=== PATIENT | male | born 1940 | race Caucasian/White ===

== ENCOUNTER → 2016-11-22 | Outpatient (CLI) | payer MEDICARE, OTHER ==
[~2016-11-22] MED LIST: ASPI81 PO; LEVA500T33 PO; LISI40TA PO; METR-1 PO; PIOG15 PO; SIMV20 PO; TAB-TAB PO; TRIA3AER
[2016-11-22 09:31] LABS: HEMATOCRIT 42.8 % (39.0-51.0); MEAN CELL VOLUME 90.6 FL (80.0-100.0); MEAN CORPUSCULAR HEMOGLOBIN 31.3 PG (27.0-34.0); MEAN CORPUSCULAR HGB CONC 34.6 % (32.0-36.0); PLATELET COUNT 117 TH/MM3 (150-450); RED BLOOD COUNT 4.72 MIL/MM3 (4.50-5.90); RED CELL DISTRIBUTION WIDTH 13.5 % (11.6-17.2); REVIEW FLAG FINAL; WHITE BLOOD COUNT 4.7 TH/MM3 (4.0-11.0)
[2016-11-22 10:19] LABS: ALKALINE PHOSPHATASE 77 U/L (45-117); ALT (GPT) 35 U/L (12-78); ANION GAP 5 MEQ/L (5-15); AST (GOT) 22 U/L (15-37); BICARBONATE 30.2 MEQ/L (21.0-32.0); BLOOD UREA NITROGEN 24 MG/DL (7-18); CHLORIDE 103 MEQ/L (98-107); GLOMERULAR FILTRATION RATE 55 ML/MIN (>89); GLUCOSE,FASTING 112 MG/DL (74-99); HDL CHOLESTEROL 83.5 MG/DL (40.0-60.0); LDL CHOLESTEROL 35 MG/DL (0-99); LDL CHOLESTEROL DIRECT 43 MG/DL (0-99); POTASSIUM 4.7 MEQ/L (3.5-5.1); SODIUM (NA) 138 MEQ/L (136-145); TOTAL BILIRUBIN ADULT 0.7 MG/DL (0.2-1.0)
[2016-11-22 16:38] LABS: HEMOGLOBIN A1a 1.1 %; HEMOGLOBIN A1b 0.7 %; HEMOGLOBIN Ao 85.1 %; HEMOGLOBIN LA1C 1.9 %; HEMOGLOBIN P3 3.8 %
== END ==
LOC: PLAB 07:46
PROVIDERS: ATTEND Family Medicine
DX: E11.9 Type 2 diabetes mellitus without complications (principal); E78.2 Mixed hyperlipidemia; I10 Essential (primary) hypertension
CPT/HCPCS: 36415; 80053; 80061; 83036; 83721; 85027

== ENCOUNTER → 2017-02-21 | Outpatient (CLI) | payer MEDICARE, OTHER ==
[2017-02-21 09:17] LABS: HEMATOCRIT 42.7 % (39.0-51.0); MEAN CELL VOLUME 89.7 FL (80.0-100.0); MEAN CORPUSCULAR HEMOGLOBIN 31.2 PG (27.0-34.0); MEAN CORPUSCULAR HGB CONC 34.8 % (32.0-36.0); PLATELET COUNT 129 TH/MM3 (150-450); RED BLOOD COUNT 4.75 MIL/MM3 (4.50-5.90); RED CELL DISTRIBUTION WIDTH 13.7 % (11.6-17.2); REVIEW FLAG FINAL; WHITE BLOOD COUNT 4.7 TH/MM3 (4.0-11.0)
[2017-02-21 09:22] LABS: BLOOD, URINE NEG (NEG); GLUCOSE,URINE NEG (NEG); KETONE, URINE NEG (NEG); MUCUS URINE FEW /lpf (OCC); NITRITE,URINE NEG (NEG); PH, URINE 5.5 (5.0-8.5); URINE COLOR YELLOW (YELLW/STRAW)
[2017-02-21 09:55] LABS: ALKALINE PHOSPHATASE 79 U/L (45-117); ALT (GPT) 33 U/L (12-78); ANION GAP 5 MEQ/L (5-15); AST (GOT) 28 U/L (15-37); BICARBONATE 31.3 MEQ/L (21.0-32.0); BLOOD UREA NITROGEN 21 MG/DL (7-18); CHLORIDE 102 MEQ/L (98-107); GLOMERULAR FILTRATION RATE 60 ML/MIN (>89); GLUCOSE,FASTING 103 MG/DL (74-99); HDL CHOLESTEROL 73.6 MG/DL (40.0-60.0); LDL CHOLESTEROL 37 MG/DL (0-99); LDL CHOLESTEROL DIRECT 38 MG/DL (0-99); SODIUM (NA) 138 MEQ/L (136-145); TOTAL BILIRUBIN ADULT 0.8 MG/DL (0.2-1.0)
[2017-02-21 10:21] LABS: MICRO ALBUMIN RANDOM URINE RAW 13.2 MG/L (0.0-30.0)
[2017-02-21 11:06] LABS: HEMOGLOBIN A1b 0.8 %; HEMOGLOBIN Ao 85.3 %; HEMOGLOBIN F 0.9 %; HEMOGLOBIN LA1C 1.9 %; HEMOGLOBIN P3 3.8 %
== END ==
LOC: PLAB 07:45
PROVIDERS: ATTEND Family Medicine
DX: E11.9 Type 2 diabetes mellitus without complications (principal); E78.2 Mixed hyperlipidemia; I10 Essential (primary) hypertension; G20 Parkinson's disease
CPT/HCPCS: 36415; 80053; 80061; 81001; 82043; 83036; 83721; 85027

== ENCOUNTER → 2017-05-23 | Outpatient (CLI) | payer MEDICARE, OTHER ==
[2017-05-23 10:55] LABS: HEMATOCRIT 43.3 % (39.0-51.0); MEAN CELL VOLUME 90.2 FL (80.0-100.0); MEAN CORPUSCULAR HEMOGLOBIN 31.7 PG (27.0-34.0); MEAN CORPUSCULAR HGB CONC 35.2 % (32.0-36.0); PLATELET COUNT 116 TH/MM3 (150-450); RED BLOOD COUNT 4.79 MIL/MM3 (4.50-5.90); RED CELL DISTRIBUTION WIDTH 13.3 % (11.6-17.2); REVIEW FLAG FINAL; WHITE BLOOD COUNT 5.4 TH/MM3 (4.0-11.0)
[2017-05-23 11:06] LABS: ALT (GPT) 31 U/L (12-78); ANION GAP 4 MEQ/L (5-15); AST (GOT) 21 U/L (15-37); BICARBONATE 29.9 MEQ/L (21.0-32.0); BLOOD UREA NITROGEN 23 MG/DL (7-18); CHLORIDE 104 MEQ/L (98-107); GLOMERULAR FILTRATION RATE 57 ML/MIN (>89); GLUCOSE,FASTING 109 MG/DL (74-99); POTASSIUM 4.2 MEQ/L (3.5-5.1); SODIUM (NA) 138 MEQ/L (136-145)
[2017-05-23 11:16] LABS: ALKALINE PHOSPHATASE 80 U/L (45-117); HDL CHOLESTEROL 74.3 MG/DL (40.0-60.0); LDL CHOLESTEROL 33 MG/DL (0-99); LDL CHOLESTEROL DIRECT 42 MG/DL (0-99); TOTAL BILIRUBIN ADULT 0.7 MG/DL (0.2-1.0)
[2017-05-23 17:08] LABS: HEMOGLOBIN A1a 1.1 %; HEMOGLOBIN A1b 0.8 %; HEMOGLOBIN Ao 84.7 %; HEMOGLOBIN LA1C 1.9 %; HEMOGLOBIN P3 3.8 %
== END ==
LOC: PLAB 07:40
PROVIDERS: ATTEND Family Medicine
DX: E11.9 Type 2 diabetes mellitus without complications (principal); R53.83 Other fatigue; E78.2 Mixed hyperlipidemia; I10 Essential (primary) hypertension
CPT/HCPCS: 36415; 80053; 80061; 83036; 83721; 84443; 85027

== ENCOUNTER → 2017-08-22 | Outpatient (CLI) | payer MEDICARE, OTHER ==
[2017-08-22 09:35] LABS: HEMATOCRIT 42.4 % (39.0-51.0); MEAN CELL VOLUME 91.9 FL (80.0-100.0); MEAN CORPUSCULAR HEMOGLOBIN 31.8 PG (27.0-34.0); MEAN CORPUSCULAR HGB CONC 34.6 % (32.0-36.0); PLATELET COUNT 127 TH/MM3 (150-450); RED BLOOD COUNT 4.62 MIL/MM3 (4.50-5.90); RED CELL DISTRIBUTION WIDTH 13.4 % (11.6-17.2); REVIEW FLAG FINAL; WHITE BLOOD COUNT 4.8 TH/MM3 (4.0-11.0)
[2017-08-22 10:08] LABS: ANION GAP 6 MEQ/L (5-15); AST (GOT) 31 U/L (15-37); BICARBONATE 27.7 MEQ/L (21.0-32.0); BLOOD UREA NITROGEN 30 MG/DL (7-18); CHLORIDE 102 MEQ/L (98-107); GLOMERULAR FILTRATION RATE 57 ML/MIN (>89); GLUCOSE,FASTING 117 MG/DL (74-99); SODIUM (NA) 136 MEQ/L (136-145)
[2017-08-22 10:13] LABS: ALKALINE PHOSPHATASE 80 U/L (45-117); ALT (GPT) 38 U/L (12-78); HDL CHOLESTEROL 76.1 MG/DL (40.0-60.0); LDL CHOLESTEROL 24 MG/DL (0-99); LDL CHOLESTEROL DIRECT 42 MG/DL (0-99); TOTAL BILIRUBIN ADULT 0.7 MG/DL (0.2-1.0)
[2017-08-22 15:48] LABS: HEMOGLOBIN A1a 1.1 %; HEMOGLOBIN A1b 0.7 %; HEMOGLOBIN Ao 84.7 %; HEMOGLOBIN P3 3.8 %
== END ==
LOC: PLAB 07:01
PROVIDERS: ATTEND Family Medicine
DX: E11.9 Type 2 diabetes mellitus without complications (principal); E78.2 Mixed hyperlipidemia; I10 Essential (primary) hypertension
CPT/HCPCS: 36415; 80053; 80061; 83036; 83721; 85027

== ENCOUNTER → 2017-11-28 | Outpatient (CLI) | payer MEDICARE, OTHER ==
[2017-11-28 09:23] LABS: HEMATOCRIT 44.3 % (39.0-51.0); HEMOGLOBIN 15.3 GM/DL (13.0-17.0); MEAN CELL VOLUME 91.6 FL (80.0-100.0); MEAN CORPUSCULAR HEMOGLOBIN 31.6 PG (27.0-34.0); MEAN CORPUSCULAR HGB CONC 34.5 % (32.0-36.0); MEAN PLATELET VOLUME 9.3 FL (7.0-11.0); PLATELET COUNT 131 TH/MM3 (150-450); RED BLOOD COUNT 4.84 MIL/MM3 (4.50-5.90); RED CELL DISTRIBUTION WIDTH 13.3 % (11.6-17.2); WHITE BLOOD COUNT 4.9 TH/MM3 (4.0-11.0)
[2017-11-28 09:51] LABS: ALBUMIN 4.4 GM/DL (3.4-5.0); ALT (GPT) 22 U/L (12-78); AST (GOT) 26 U/L (15-37); BICARBONATE 29.3 MEQ/L (21.0-32.0); BLOOD UREA NITROGEN 24 MG/DL (7-18); CHLORIDE 101 MEQ/L (98-107); CHOLESTEROL 127 MG/DL (120-200); CREATININE 1.12 MG/DL (0.60-1.30); GLOMERULAR FILTRATION RATE 63 ML/MIN (>89); GLUCOSE,FASTING 112 MG/DL (74-99); SODIUM (NA) 137 MEQ/L (136-145); TRIGLYCERIDES 63 MG/DL (42-150)
[2017-11-28 09:52] LABS: CALCIUM 9.4 MG/DL (8.5-10.1)
[2017-11-28 09:53] LABS: ALKALINE PHOSPHATASE 79 U/L (45-117); CHOLESTEROL/ HDL RATIO 1.55 RATIO; HDL CHOLESTEROL 81.5 MG/DL (40.0-60.0); LDL CHOLESTEROL 33 MG/DL (0-99); LDL CHOLESTEROL DIRECT 44 MG/DL (0-99); TOTAL PROTEIN 7.3 GM/DL (6.4-8.2)
[2017-11-28 17:06] LABS: HEMOGLOBIN A1C 6.2 % (4.3-6.0)
== END ==
LOC: PLAB 07:47
PROVIDERS: ATTEND Family Medicine
DX: E11.9 Type 2 diabetes mellitus without complications (principal); E78.2 Mixed hyperlipidemia; I10 Essential (primary) hypertension
CPT/HCPCS: 36415; 80053; 80061; 83036; 83721; 85027

== ENCOUNTER → 2018-03-15 | Outpatient (CLI) | payer MEDICARE, OTHER ==
[2018-03-15 10:32] LABS: HEMATOCRIT 44.3 % (39.0-51.0); HEMOGLOBIN 15.2 GM/DL (13.0-17.0); MEAN CELL VOLUME 92.2 FL (80.0-100.0); MEAN CORPUSCULAR HEMOGLOBIN 31.7 PG (27.0-34.0); MEAN CORPUSCULAR HGB CONC 34.3 % (32.0-36.0); PLATELET COUNT 148 TH/MM3 (150-450); RED CELL DISTRIBUTION WIDTH 13.5 % (11.6-17.2); WHITE BLOOD COUNT 7.2 TH/MM3 (4.0-11.0)
[2018-03-15 10:37] LABS: ALBUMIN 4.4 GM/DL (3.4-5.0); ALT (GPT) 27 U/L (12-78); AST (GOT) 23 U/L (15-37); BICARBONATE 29.6 MEQ/L (21.0-32.0); BLOOD UREA NITROGEN 27 MG/DL (7-18); CALCIUM 9.1 MG/DL (8.5-10.1); CHLORIDE 101 MEQ/L (98-107); CHOLESTEROL 132 MG/DL (120-200); CREATININE 1.11 MG/DL (0.60-1.30); GLOMERULAR FILTRATION RATE 64 ML/MIN (>89); GLUCOSE,FASTING 136 MG/DL (74-99); SODIUM (NA) 137 MEQ/L (136-145); TRIGLYCERIDES 73 MG/DL (42-150)
[2018-03-15 10:40] LABS: ALKALINE PHOSPHATASE 82 U/L (45-117); CHOLESTEROL/ HDL RATIO 1.69 RATIO; HDL CHOLESTEROL 78.1 MG/DL (40.0-60.0); LDL CHOLESTEROL 39 MG/DL (0-99); LDL CHOLESTEROL DIRECT 39 MG/DL (0-99); TOTAL BILIRUBIN ADULT 0.8 MG/DL (0.2-1.0); TOTAL PROTEIN 7.3 GM/DL (6.4-8.2)
== END ==
LOC: PLAB 07:28
PROVIDERS: ATTEND Family Medicine
DX: E11.9 Type 2 diabetes mellitus without complications (principal); E78.4 Other hyperlipidemia; I10 Essential (primary) hypertension
CPT/HCPCS: 36415; 80053; 80061; 83036; 83721; 85027

== ENCOUNTER 2018-05-07 16:25 | Observation (INO) ==
[2018-05-07 17:30] LABS: Bacteria,Urine Rare /hpf; Bilirubin,Urine Negative (Negative); Clarity,Urine Clear (Clear); Color,Urine Yellow (Yellw/Straw); Glucose,Urine (UA) Negative (Negative); Leukocyte Esterase,Urine Negative (Negative); Nitrite,Urine Negative (Negative); Specific Gravity,Urine 1.013 (1.002-1.035)
--- NOTE | 2018-05-07 17:30 | XR ---
EXAM DATE: 05/07/2018 5:18 PM EDT AGE/SEX: 77 years / Male INDICATIONS: Chest pain. CLINICAL DATA: This is the patient's initial encounter. Patient reports that signs and symptoms have been present for 1 day and indicates a pain score of 6/10. MEDICAL/SURGICAL HISTORY: None. None. COMPARISON: No prior exams available for comparison. FINDINGS: The lungs are clear without infiltrate, nodule, or mass. There is no appreciable pleural effusion fo r technique. Heart and mediastinum are unremarkable. CONCLUSION: No acute cardiopulmonary disease. Electronically signed by: Cheryl Ott MD 05/07/2018 5:29 PM EDT
[2018-05-07 17:33] LABS: INR 1.1 Ratio; Prothrombin Time 11.1 sec (9.8-11.6)
[2018-05-07 17:35] LABS: Baso % (Auto) 0.6 % (0.0-2.0); Eos # (Auto) 0.1 th/mm3 (0.0-0.4); Eos % (Auto) 0.9 % (0.0-4.0); Hematocrit 40.2 % (39.0-51.0); Hemoglobin 13.9 gm/dL (13.0-17.0); Lymph # (Auto) 1.1 th/mm3 (1.0-4.8); Lymph % (Auto) 17.9 % (9.0-44.0); Mean Corpuscular HGB Conc 34.6 % (32.0-36.0); Mean Corpuscular Hemoglobin 31.8 pg (27.0-34.0); Mean Corpuscular Volume 91.9 fL (80.0-100.0); Mean Platelet Volume 9.9 fL (7.0-11.0); Mono # (Auto) 0.4 th/mm3 (0.0-0.9); Neut # (Auto) 4.5 th/mm3 (1.8-7.7); Neut % (Auto) 74.6 % (16.0-70.0); Platelet Count 103 th/mm3 (150-450); Red Blood Count 4.38 mil/mm3 (4.50-5.90); Red Cell Distribution Width 13.2 % (11.6-17.2); White Blood Count 6.1 th/mm3 (4.0-11.0)
[2018-05-07 17:41] LABS: Anion Gap 5 meq/L (5-15); Blood Urea Nitrogen 26 mg/dL (7-18); Calcium 8.9 mg/dL (8.5-10.1); Carbon Dioxide 28.3 meq/L (21.0-32.0); Chloride 104 meq/L (98-107); Creatine Kinase 175 U/L (39-308); Glomerular Filtration Rate 60 mL/min (>89); Glucose,Random 174 mg/dL (74-106); Potassium 4.7 meq/L (3.5-5.1); Sodium 137 meq/L (136-145)
[2018-05-07 17:55] LABS: Creatine Kinase MB 2.9 ng/mL (0.5-3.6)
[2018-05-07 18:05] LABS: Platelet Morphology Normal (Normal)
[2018-05-07] MEDS ORDERED: Aspirin 325 MG Tablet PO ONE (18:41)
--- NOTE | 2018-05-07 19:29 | ED ---
HPI General Chief Complaint: Chest Pain Stated Complaint: chest pain Time Seen by Provider: 05/07/18 18:11 Source: patient Mode of arrival: ambulatory Limitations: no limitations History of Present Illness HPI narrative: 77-year-old male with a history of diabetes, high blood pressure , high cholesterol, Parkinson's the presents to the ED for evaluation of left- sided chest pain. Patient has had this for the past 2 days. Per patient he comes and goes. Per patient he does not last more than a minute and then he goes away. Per patient is very significant when he comes. Per patient is 8 out of 10 and catches his breath. No history of this in the past. Has not had a stress test in years. No history of heart disease. He states compliance with his medications and takes a baby aspirin every day. He follows with no shake feeder. No urinary or bowel movement issues. No injury or trauma. Nothing seems to make it better or worse. Per patient he did notice that 1 of them did happen when he was in the exercise room but otherwise most of them appear to calm with no real explanation. Patient got concern is what prompted evaluation. Currently he has no symptoms other than some anxiety which she has chronically. Complete Quality Measures for STEMI Alert Patients Related Data Allergies Allergy/AdvReac Type Severity Reaction Status Date / Time bacitracin [From Polysporin] Allergy Rash Verified 05/07/18 16:36 neomycin Allergy Rash Verified 05/07/18 16:36 [From Triple Antibiotic] polymyxin B [From Polysporin] Allergy Rash Verified 05/07/18 16:36 Review of Systems ROS Unobtainable All other systems reviewed negative except as stated in HPI FOR[facility]LY [facility], [facility] Medical History Medical History Diabetes mellitus (Acute) Hypertension (Acute) Melanoma of face (Acute) Parkinson disease (Acute) Surgical History Surgical History Hx of cholecystectomy (Acute) Social History Social History Smoking Status: Former smoker How Often Do You Have a Drink Containing Alcohol: 4 or more times a week Recent Travel in [facility] within the Last 8 Weeks: No Recent Out of Country Travel within the Last 8 Weeks: No Immunization History Tetanus Immunization: Unsure Exam Narrative Exam Narrative: GENERAL: Well-appearing SKIN: Focused skin assessment warm/dry. HEAD: Atraumatic. Normocephalic. EYES: Pupils equal and round. No scleral icterus. No injection or drainage. ENT: No nasal bleeding or discharge. Mucous membranes pink and moist. Tongue is midline. No uvula deviation. NECK: Trachea midline. No JVD. CARDIOVASCULAR: Regular rate and rhythm. No murmur appreciated. RESPIRATORY: No accessory muscle use. Clear to auscultation. Breath sounds equal bilaterally. GASTROINTESTINAL: Abdomen soft, non-tender, nondistended. Hepatic and splenic margins not palpable. MUSCULOSKELETAL: No obvious deformities. No clubbing. No cyanosis. No edema. NEUROLOGICAL: Awake and alert. No obvious cranial nerve deficits. Motor grossly within normal limits. Normal speech. PSYCHIATRIC: Appropriate mood and affect; insight and judgment normal. Course Initial Documented Vital Signs Temperature 98.2 F 05/07/18 16:32 Pulse Rate 73 05/07/18 16:32 Respiratory Rate 17 05/07/18 16:32 Blood Pressure 147/85 H 05/07/18 16:32 Pulse Oximetry 96 05/07/18 16:32 Last Documented Vital Signs Temperature 98.2 F 05/07/18 16:32 Pulse Rate 64 05/07/18 19:12 Respiratory Rate 16 05/07/18 19:12 Blood Pressure 169/81 H 05/07/18 19:12 Pulse Oximetry 96 05/07/18 16:32 Medical Decision Making MDM Narrative Medical decision making narrative: 77-year-old male the presents to the ED for evaluation of left-sided chest pain. Patient was properly examined and was found to have signs and symptoms concerning for ACS. Labs and imaging were ordered. Labs and imaging were essentially unremarkable for acute disease. Patient was reassured. At this time I do recommend admission to chest pain center secondary to patient's risk factors. Patient and family agree with this. Case discussed with my attending who agrees with plan. Patient was admitted to chest pain center by me. Differential Diagnosis Differential Diagnosis: ACS versus chest pain versus a typical chest pain Medical Records Medical records reviewed: Yes I reviewed the patient's medical records. Lab Data Lab results reviewed: Yes I reviewed the patient's lab results. Lab results narrative: Troponin and CK-MB negative. Result diagrams: 05/07/18 17:00 05/07/18 17:00 Lab Results 05/07/18 05/07/18 05/07/18 Range/Units 17:00 17:00 17:00 WBC 6.1 (4.0-11.0) th/mm3 RBC 4.38 L (4.50-5.90) mil/mm3 Hgb 13.9 (13.0-17.0) gm/dL Hct 40.2 (39.0-51.0) % MCV 91.9 (80.0-100.0) fL MCH 31.8 (27.0-34.0) pg MCHC 34.6 (32.0-36.0) % RDW 13.2 (11.6-17.2) % Plt Count 103 L (150-450) th/mm3 MPV 9.9 (7.0-11.0) fL Prelim Diff (Auto) Slide review pending Neut % (Auto) 74.6 H (16.0-70.0) % Lymph % (Auto) 17.9 (9.0-44.0) % [place] % (Auto) 6.0 (0.0-8.0) % Eos % (Auto) 0.9 (0.0-4.0) % Baso % (Auto) 0.6 (0.0-2.0) % Neut # (Auto) 4.5 (1.8-7.7) th/mm3 Lymph # (Auto) 1.1 (1.0-4.8) th/mm3 [place] # (Auto) 0.4 (0.0-0.9) th/mm3 Eos # (Auto) 0.1 (0.0-0.4) th/mm3 Baso # (Auto) 0.0 (0.0-0.2) th/mm3 WBC Differential . Diff Scan Auto diff confirmed Differential Comment . Platelet Estimate Low L (Normal) Platelet Morphology Normal (Normal) PT 11.1 (9.8-11.6) sec INR 1.1 Ratio APTT 24.0 L (24.3-30.1) sec Sodium 137 (136-145) meq/L Potassium 4.7 (3.5-5.1) meq/L Chloride 104 (98-107) meq/L Carbon Dioxide 28.3 (21.0-32.0) meq/L Anion Gap 5 (5-15) meq/L BUN 26 H (7-18) mg/dL Creatinine 1.17 (0.60-1.30) mg/dL Estimated GFR 60 L (>89) mL/min POC Glucose (68-110) mg/dl Random Glucose 174 H (74-106) mg/dL Calcium 8.9 (8.5-10.1) mg/dL Total Creatine Kinase 175 (39-308) U/L CK-MB (CK-2) 2.9 (0.5-3.6) ng/mL Troponin I Less than 0.02 L (0.02-0.05) ng/mL Urine Color (Yellw/Straw) Urine Clarity (Clear) Urine pH (5.0-8.5) Ur Specific [place] (1.002-1.035) Urine Protein (Neg-Trace) mg/dL Urine Glucose (UA) (Negative) mg/dL Urine Ketones (Negative) mg/dL Urine Occult Blood (Negative) Urine Nitrate (Negative) Urine Bilirubin (Negative) Urine Urobilinogen (Less than 2) mg/dL Ur Leukocyte Esterase (Negative) Urine RBC (0-3) /hpf Urine WBC (0-5) /hpf Urine Bacteria (None) /hpf Micro UA Comment Urine Culture Comments 05/07/18 05/07/18 Range/Units 17:00 19:05 WBC (4.0-11.0) th/mm3 RBC (4.50-5.90) mil/mm3 Hgb (13.0-17.0) gm/dL Hct (39.0-51.0) % MCV (80.0-100.0) fL MCH (27.0-34.0) pg MCHC (32.0-36.0) % RDW (11.6-17.2) % Plt Count (150-450) th/mm3 MPV (7.0-11.0) fL Prelim Diff (Auto) Neut % (Auto) (16.0-70.0) % Lymph % (Auto) (9.0-44.0) % [place] % (Auto) (0.0-8.0) % Eos % (Auto) (0.0-4.0) % Baso % (Auto) (0.0-2.0) % Neut # (Auto) (1.8-7.7) th/mm3 Lymph # (Auto) (1.0-4.8) th/mm3 [place] # (Auto) (0.0-0.9) th/mm3 Eos # (Auto) (0.0-0.4) th/mm3 Baso # (Auto) (0.0-0.2) th/mm3 WBC Differential Diff Scan Differential Comment Platelet Estimate (Normal) Platelet Morphology (Normal) PT (9.8-11.6) sec INR Ratio APTT (24.3-30.1) sec Sodium (136-145) meq/L Potassium (3.5-5.1) meq/L Chloride (98-107) meq/L Carbon Dioxide (21.0-32.0) meq/L Anion Gap (5-15) meq/L BUN (7-18) mg/dL Creatinine (0.60-1.30) mg/dL Estimated GFR (>89) mL/min POC Glucose 112 H (68-110) mg/dl Random Glucose (74-106) mg/dL Calcium (8.5-10.1) mg/dL Total Creatine Kinase (39-308) U/L CK-MB (CK-2) (0.5-3.6) ng/mL Troponin I (0.02-0.05) ng/mL Urine Color Yellow (Yellw/Straw) Urine Clarity Clear (Clear) Urine pH 5.0 (5.0-8.5) Ur Specific [place] 1.013 (1.002-1.035) Urine Protein Negative (Neg-Trace) mg/dL Urine Glucose (UA) Negative (Negative) mg/dL Urine Ketones Negative (Negative) mg/dL Urine Occult Blood Negative (Negative) Urine Nitrate Negative (Negative) Urine Bilirubin Negative (Negative) Urine Urobilinogen Less than 2 (Less than 2) mg/dL Ur Leukocyte Esterase Negative (Negative) Urine RBC 1 (0-3) /hpf Urine WBC 1 (0-5) /hpf Urine Bacteria Rare H (None) /hpf Micro UA Comment Culture not ind Urine Culture Comments Culture not ind Imaging Data Attestation: I personally reviewed and interpreted this imaging study as follows : Radiologist's impression: Chest X-Ray 05/07/18 16:37 CONCLUSION: No acute cardiopulmonary disease. ECG Data Attestation: I personally reviewed and interpreted this ECG as follows: Interpretation: EKG shows sinus rhythm with no sign of acute ischemia and arrhythmia read by me and attending. MD intervals are 173 ms. No sign of ST elevation. Discharge Plan Discharge Disposition Patient Disposition: 30 Still Patient Discharge Details Diagnosis: Chest pain Physicians Team ED Provider: Victorino Umanzor ED Midlevel Provider: Carlos Alberto Umaña Primary Care Provider: Quan Pickard Attending Provider: Aldair High ED Status: Admitted Observation Patient
[2018-05-07 21:13] LABS: Creatine Kinase 150 U/L (39-308)
[2018-05-07 22:47] LABS: Creatine Kinase 107 U/L (39-308)
[2018-05-08] MEDS ORDERED: Acetaminophen 500 MG Tablet PO PRN (07:19)
[2018-05-08 08:26] VITALS: RESP 18
--- NOTE | 2018-05-08 08:27 | P.HPCA ---
History of Present Illness Primary Care Physician: Quan Pickard MD Chief Complaint: Chest pain History of Present Illness: 77 year old male with history of hypertension, diabetes, and Parkinson's disease presents to ER for further evaluation of chest pain. Onset 1000am. Location substernal. Characterized as a quick onset grabbing sensation. No radiation. Duration 5 minutes. No associated symptoms of nausea, vomiting, or dyspnea. Endorses diaphoresis. No no precipitating or relieving factors. Denies similar pain in the past. No recent illness or injury. No further episodes throughout the day. encouraged him to come the ER for further evaluation. No known coronary artery disease. Remote cardiac testing 10 years ago reported to be normal. Exercises everyday except Tuesday's. Activity includes going to gym and cycling. No exertional chest pain with exercise. - Diagnosis (1) Chest pain, atypical (2) H/O: hypertension (3) H/O Parkinson's disease (4) H/O diabetes mellitus Review of Systems All other systems reviewed negative except as stated in HPI PMFSH - History History Provided By: Patient - Medical History Medical History: Medical History (Last Reviewed 05/08/18 @ 08:23 by MANISHA Barton) Diabetes mellitus Hypertension Melanoma of face Parkinson disease - Surgical History Surgical History: Surgical History (Last Reviewed 05/08/18 @ 08:23 by MANISHA Barton) Hx of cholecystectomy - Tobacco History Second Hand Smoke Exposure: No Tobacco Use In Past 30 Days: No Smoking Status: Former smoker (Quit smoking 35 years ago) - Alcohol History How Often Do You Have a Drink Containing Alcohol: 4 or more times a week (1 beer daily. Weekends shares bottle of wine with .) - Substance Use History Substance History: No History of Abuse - Travel History History of Recent Travel: No Recent Travel in the [place] Within the Last 8 Weeks: No Recent Travel Out of the Country Within the Last 8 Weeks: No - Immunization History Tetanus Immunization: Unsure Medications and Allergies Active Medications: Active Medications Acetaminophen (Tylenol) 500 mg PO Q4H PRN PRN Reason: HEADACHE Aspirin (Aspirin) 325 mg PO DAILY FRANNY Nitroglycerin (Nitrostat Sl) 0.4 mg SL Q5M PRN PRN Reason: CHEST PAIN Ondansetron HCl (Zofran Odt) 4 mg PO Q6H PRN PRN Reason: NAUSEA Sodium Chloride (Ns Flush) 2 ml IV.FLUSH BID FRANNY Last Admin: 05/08/18 00:14 Dose: 2 ml Sodium Chloride (Ns Flush) 2 ml IV.FLUSH PRN PRN PRN Reason: FLUSH AFTER USING IV ACCESS Allergies Allergy/AdvReac Type Severity Reaction Status Date / Time bacitracin [From Polysporin] Allergy Rash Verified 05/07/18 16:36 neomycin Allergy Rash Verified 05/07/18 16:36 [From Triple Antibiotic] polymyxin B [From Polysporin] Allergy Rash Verified 05/07/18 16:36 Home Medications Medication Instructions Recorded Confirmed Type alprazolam 0.25 mg PO BID 05/07/18 05/07/18 History aspirin 81 mg PO DAILY 05/07/18 05/07/18 History carbidopa-levodopa 1 tab PO QID 05/07/18 05/07/18 History colchicine 0.6 mg PO DAILY 05/07/18 05/07/18 History lisinopril 20 mg PO DAILY 05/07/18 05/07/18 History pioglitazone 15 mg PO DAILY 05/07/18 05/07/18 History simvastatin 05/07/18 History zolpidem [Ambien] 5 mg PO 05/07/18 History Exam Vital signs: Vital Signs 05/07/18 16:32 05/07/18 19:12 05/07/18 20:00 Temperature 98.2 F 98.2 F Pulse Rate 73 64 87 Respiratory Rate 17 16 17 Blood Pressure 147/85 H 169/81 H 118/67 Pulse Oximetry 96 100 05/08/18 00:00 05/08/18 04:00 Temperature 98.9 F 98.6 F Pulse Rate 79 70 Respiratory Rate 16 16 Blood Pressure 128/80 120/63 Pulse Oximetry 95 96 Intake & Output 05/07/18 05/08/18 05/08/18 18:59 06:59 18:59 Weight 74.843 kg Narrative: male in no acute distress with involuntary tremor of left upper extremity. - Constitutional no acute distress, cooperative - Routine HEENT Exam Head: Present: normocephalic, atraumatic - Routine Neck Exam Present: supple, full ROM - Routine Chest/Breast/Axilla Exam Chest wall: Absent: tenderness - Routine Respiratory Exam Present: CTA bilaterally - Routine Cardiovascular Exam Present: RRR. Absent: murmur, gallop, rubs - Routine Abdominal Exam Present: soft, normoactive bowel sounds. Absent: tenderness, distended - Routine Extremities Exam Present: full ROM. Absent: edema - Routine Skin Exam Present: intact, warm - Routine Neurological Exam Present: alert, oriented X3, normal tone, normal speech left arm involuntary tremors, impaired short term memory, somewhat slow to response to questions - Routine Psychiatric Exam Present: normal thought process, cooperative, good insight, good judgment Comments: flat affect, pleasant Results 05/07/18 17:00 05/07/18 17:00 Cardiac Enzymes 05/07/18 05/07/18 05/07/18 Range/Units 17:00 19:56 21:45 CK-MB (CK-2) 2.9 (0.5-3.6) ng/mL Troponin I Less than 0.02 L Less than 0.02 L Less than 0.02 L (0.02-0.05) ng/mL Coagulation 05/07/18 Range/Units 17:00 PT 11.1 (9.8-11.6) sec APTT 24.0 L (24.3-30.1) sec CBC 05/07/18 Range/Units 17:00 WBC 6.1 (4.0-11.0) th/mm3 RBC 4.38 L (4.50-5.90) mil/mm3 Hgb 13.9 (13.0-17.0) gm/dL Hct 40.2 (39.0-51.0) % Plt Count 103 L (150-450) th/mm3 Neut # (Auto) 4.5 (1.8-7.7) th/mm3 Lymph # (Auto) 1.1 (1.0-4.8) th/mm3 [place] # (Auto) 0.4 (0.0-0.9) th/mm3 Eos # (Auto) 0.1 (0.0-0.4) th/mm3 Baso # (Auto) 0.0 (0.0-0.2) th/mm3 Comprehensive Metabolic Panel 05/07/18 Range/Units 17:00 Sodium 137 (136-145) meq/L Potassium 4.7 (3.5-5.1) meq/L Chloride 104 (98-107) meq/L Carbon Dioxide 28.3 (21.0-32.0) meq/L BUN 26 H (7-18) mg/dL Creatinine 1.17 (0.60-1.30) mg/dL Calcium 8.9 (8.5-10.1) mg/dL Intake and Output 05/07/18 05/08/18 05/08/18 22:59 06:59 14:59 Other: Weight 74.843 kg EKG interpretations - EKG EKG results cardiology: WNL, sinus rhythm, normal axis, normal QRS, normal ST/T Caprini VTE Risk Assessment Caprini VTE Risk Assessment: Moderate/High Risk (score >= 2) Caprini Risk Assessment Model: Point Value = 1 Point Value = 2 Point Value = 3 Point Value = 5 Age 41-60 Minor surgery BMI > 25 kg/m2 Swollen legs Varicose veins or History of unexplained or recurrent spontaneous Oral contraceptives or hormone replacement Sepsis (< 1 month) Serious lung disease, including pneumonia (< 1 month) Abnormal pulmonary function Acute myocardial infarction Congestive heart failure (< 1 month) History of inflammatory bowel disease Medical patient at bed rest Age 61-74 Arthroscopic surgery Major open surgery (> 45 min) Laparoscopic surgery (> 45 min) Malignancy Confined to bed (> 72 hours) Immobilizing plaster cast Central venous access Age >= 75 History of VTE Family history of VTE Factor V Leiden Prothrombin [id number] Lupus anticoagulant Anticardiolipin antibodies Elevated serum homocysteine Heparin-induced thrombocytopenia Other congenital or acquired thrombophilia Stroke (< 1 month) Elective arthroplasty Hip, pelvis, or leg fracture Acute spinal cord injury (< 1 month) Prophylaxis Regimen: Total Risk Factor Score Risk Level Prophylaxis Regimen 0-1 Low Early ambulation 2 Moderate Order ONE of the following: *Sequential Compression Device (SCD) *Heparin 5000 units SQ BID 3-4 Higher Order ONE of the following medications: *Heparin 5000 units SQ TID *Enoxaparin/Lovenox 40 mg SQ daily (WT < 150 kg, CrCl > 30 mL/min) *Enoxaparin/Lovenox 30 mg SQ daily (WT < 150 kg, CrCl > 10-29 mL/min) *Enoxaparin/Lovenox 30 mg SQ BID (WT < 150 kg, CrCl > 30 mL/min) AND/OR *Sequential Compression Device (SCD) 5 or more Highest Order ONE of the following medications: *Heparin 5000 units SQ TID (Preferred with Epidurals) *Enoxaparin/Lovenox 40 mg SQ daily (WT < 150 kg, CrCl > 30 mL/min) *Enoxaparin/Lovenox 30 mg SQ daily (WT < 150 kg, CrCl > 10-29 mL/min) *Enoxaparin/Lovenox 30 mg SQ BID (WT < 150 kg, CrCl > 30 mL/min) AND *Sequential Compression Device (SCD) Assessment and Plan - Assessment (1) Chest pain, atypical Code(s): R07.89 - Other chest pain Status: Acute Plan: Admitted chest pain center. ACS ruled out 3 sets of EKGs and cardiac enzymes. Monitor on telemetry overnight. Will be seen evaluated by Dr. Carroll Wren. Likely will proceed with exercise stress test as he exercises daily. This will be determined after he was evaluation by commission specialist. 1110-Attempted exercise cardiac testing. Unable to walk safely on treadmill, therefore Lexiscan ordered. (2) H/O: hypertension Code(s): Z86.79 - Personal history of other diseases of the circulatory system Status: Chronic Plan: Continue lisinopril and monitoring. (3) H/O Parkinson's disease Code(s): Z86.69 - Personal history of other diseases of the nervous system and sense organs Status: Chronic Plan: Continue carbidopa-levodopa. Dr. Wren discussed following up with [facility] or [facility] regarding Parkinson's disease. (4) H/O diabetes mellitus Code(s): Z86.39 - Personal history of other endocrine, nutritional and metabolic disease Status: Chronic Plan: Hold oral anti-glycemic's at this time. H&P: Quality - VTE Deep Vein Thrombosis/Pulmonary Embolism Present on Admission: No
[2018-05-08] MEDS ORDERED: Lisinopril 20 MG Tablet PO SCH (09:00)
--- NOTE | 2018-05-08 10:02 | P.PNCA ---
Subjective Interval history: Patient was reviewed with the nurse practitioner's documentation was reviewed laboratory radiographic and electrocardiographic data was reviewed and the patient was then seen and examined personally. 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 Patient also emphasizes to me that the pain was mid chest very sharp and severe but lasted only seconds. He experienced 3 episodes only with no recurrence. History needs to be tempered by possibility that the patient's memory may be mildly impaired Physical Exam Vital signs: Vital Signs 05/07/18 16:32 05/07/18 19:12 05/07/18 20:00 Temperature 98.2 F 98.2 F Pulse Rate 73 64 87 Respiratory Rate 17 16 17 Blood Pressure 147/85 H 169/81 H 118/67 Pulse Oximetry 96 100 05/08/18 00:00 05/08/18 04:00 05/08/18 08:00 Temperature 98.9 F 98.6 F 97.6 F Pulse Rate 79 70 65 Respiratory Rate 16 16 18 Blood Pressure 128/80 120/63 160/75 H Pulse Oximetry 95 96 100 Intake & Output 05/07/18 05/08/18 05/08/18 18:59 06:59 18:59 Weight 74.843 kg Narrative: Physical exam is as documented with the addition of a surgical scar left cheek right upper chest and left upper abdomen post removal of melanomas. Assessment and Plan - Assessment (1) Chest pain, atypical Code(s): R07.89 - Other chest pain Status: Resolved Plan: Admitted chest pain center. ACS ruled out 3 sets of EKGs and cardiac enzymes. Monitor on telemetry overnight. Will be seen evaluated by Dr. Carroll Wren. Likely will proceed with exercise stress test as he exercises daily. This will be determined after he was evaluation by pantograph transferrer. I am in agreement with plan as documented above. If stress test is negative patient will be discharged for follow-up with Dr. Wells (2) H/O: hypertension Code(s): Z86.79 - Personal history of other diseases of the circulatory system Status: Chronic Plan: Continue lisinopril (3) H/O Parkinson's disease Code(s): Z86.69 - Personal history of other diseases of the nervous system and sense organs Status: Chronic Plan: Continue carbidopa Have suggested to the patient that since his Parkinson's is a major concern he might discuss further evaluation at either [facility] or [facility] (4) H/O diabetes mellitus Code(s): Z86.39 - Personal history of other endocrine, nutritional and metabolic disease Status: Chronic Plan: Hold oral anti-glycemic's at this time.
[2018-05-08] MEDS ORDERED: Regadenoson Inj 0.4 MG/5 ML Syringe IV.PUSH ONE (14:01)
--- NOTE | 2018-05-08 16:08 | NM ---
EXAM DATE: 05/08/2018 3:13 PM EDT AGE/SEX: 77 years / Male INDICATIONS:Angina. . Chest pain. CLINICAL DATA: This is the patient's initial encounter. Patient reports that signs and symptoms have been present for 1 day and indicates a pain score of 0/10. MEDICAL/SURGICAL HISTORY: Carcinoma, skin cancer. Diabetes mellitus type II. Parkinson's dise ase. Cholecystectomy. COMPARISON: No prior exams available for comparison. No external comparison. DOSE: 8.7 mCi Tc 99m Myoview at rest 27.2 mCi [id number] at stress 0.4 mg Lexiscan STRESS SYMPTOMS: Dyspnea and heart racing. EJECTION FRACTION: >70 % TECHNIQUE: The patient underwent pharmacologic stress with infusion of prescribed dose. Continuous ECG tracing was monitored during stress. Gated SPECT imaging was performed after stress and conventi onal SPECT imaging was performed at rest. The examination was performed on a SPECT/CT scanner, both attenuation and non-corrected datasets were reviewed. FINDINGS: Distribution: The maximum perfused segment at stress is in the septal wall. Perfusion Study: The pattern of perfusion at stress is within normal limits. Gated Study: There are intact wall motion and wall thickening without hypokinetic or dyskinetic segm ents. The ejection fraction is calculated at >70%. RISK CATEGORY: Low (<1% Annual Motality Rate) CONCLUSION: 1. Negative examination. Electronically signed by: Jacques River MD 05/08/2018 4:07 PM EDT
[2018-05-08 16:09] VITALS: BP 134/68; PULSE 64; TEMP 97.7; O2SAT 99
[2018-05-09] MEDS ORDERED: Aspirin 325 MG Tablet PO SCH (09:00)
--- NOTE | 2018-05-09 16:53 | TR ---
Date Performed: 05/08/2018 Time Performed: 13:54:45 DOCTOR: Daysi Heath DRUG LIST: CLINICAL HISTORY: REASON FOR TEST: REASON FOR ENDING: OBSERVATION: CONCLUSION: Lexiscan stress test was performed under standard four minute protocol. Radionucl[place] e was injected one minute prior to ending the test. No electrocardiographic abormalities were present to suggest ischemia. Nuclear imaging and interpretation are pending. COMMENTS:
--- NOTE | 2018-05-09 16:53 | TR ---
Date Performed: 05/08/2018 Time Performed: 11:00:30 DOCTOR: Daysi Heath DRUG LIST: CLINICAL HISTORY: REASON FOR TEST: REASON FOR ENDING: OBSERVATION: CONCLUSION: Demond protocol attempted. Stopped sec to difficultly walking safely and concern magdy ent may fall. No reprod chest discomfort. Frequent PVC during recovery. COMMENTS: No ischemia
--- NOTE | 2018-05-09 16:58 | ECG ---
Date Performed: 05/07/2018 Time Performed: 21:57:40 PTAGE: 77 years EKG: Sinus rhythm - probable ARTIFACT PREVIOUS TRACING : 05/07/2018 20.01 DOCTOR: Daysi Heath Interpretating Date/Time 05/09/2018 16:56:46
--- NOTE | 2018-05-09 16:59 | ECG ---
Date Performed: 05/07/2018 Time Performed: 20:01:21 PTAGE: 77 years EKG: Sinus rhythm NORMAL ECG Since PREVIOUS TRACING , no significant change noted PREVIOUS TRACIN05/07/2018 16.46 DOCTOR: Daysi Heath Interpretating Date/Time 05/09/2018 16:57:11
--- NOTE | 2018-05-09 16:59 | ECG ---
Date Performed: 05/07/2018 Time Performed: 16:46:05 PTAGE: 77 years EKG: Sinus rhythm NORMAL ECG ARTIFACT Since PREVIOUS TRACING , likely no significant change PREVIOUS TRACIN09/12/2000 11.39 DOCTOR: Daysi Heath Interpretating Date/Time 05/10/2018 07:26:38
== END 2018-05-08 17:25 | disposition home or self-care (01) ==
LOC: NEPC 16:25 → NEPFCDU 16:25 → NEDA 16:25 → NEPFCDU 21:19 → HCIS 22:49 → NEPFCDU 22:50
DX: F41.9 Anxiety disorder, unspecified; Z85.820 Personal history of malignant melanoma of skin; Z79.82 Long term (current) use of aspirin; I10 Essential (primary) hypertension; Z87.891 Personal history of nicotine dependence; Z88.1 Allergy status to other antibiotic agents; E78.00 Pure hypercholesterolemia, unspecified; G20 Parkinson's disease; R07.89 Other chest pain; E11.9 Type 2 diabetes mellitus without complications